=== PATIENT | male | born 1965 | race Caucasian/White ===

== ENCOUNTER 2019-05-09 12:02 | Emergency (ER) | payer SELFPAY ==
[~2019-05-09] VITALS: Ht 167.6 cm; Wt 83.5 kg
[2019-05-09 12:13] VITALS: BP 126/85
--- NOTE | 2019-05-09 12:33 | NUR ---
ED Nurse Note: Pt. AAOx4. ambulatory. c/o left lower abd/groin pain x 1 month. dx with hernia that needs repair. pain is worsened. denies n/v/d at this time. no ss of acute distress noted at this time
--- NOTE | 2019-05-09 12:46 | Emergency Room Report ---
History of Present Illness General Chief Complaint: Abdominal Pain Source: Patient Present Illness HPI 53-year-old male presents to the emergency department complaining of intermittent 9 out of 10 severity pain to the left lower quadrant/inguinal area secondary to hernia x1 month. Patient reports that he was diagnosed with a hernia while he was in senior living and he was recommended to have surgery however upon release of senior living he did not have any follow-up. Patient states that when he coughs or when he eats his symptoms are exacerbated and the hernia swells up much larger. Patient states that he is able to push the hernia in and out he states that laying down on his back makes his symptoms better. Patient denies erythema, warmth, nausea, vomiting, fevers or chills. No other relieving factors at this time. Patient states he was given some special type of underwear however it is not helping. He denies strenuous activities or heavy lifting. Allergies: Coded Allergies: No Known Allergies (Unverified , 05/09/19) Patient History Past Medical History: see triage record Past Surgical History: none Pertinent Family History: none Reviewed Nursing Documentation: PMH: Agreed; PSxH: Agreed Nursing Documentation-PMH Past Medical History: No History, Except For History Of Psychiatric Problem: Yes - substance abuse Review of Systems All Other Systems: negative except mentioned in HPI Physical Exam Vital Signs Date Time Temp Pulse Resp B/P (MAP) Pulse Ox O2 Delivery O2 Flow Rate FiO2 05/09/19 12:13 98.1 95 20 126/85 99 Room Air Sp02 EP Interpretation: reviewed, normal General Appearance: well appearing, no apparent distress, alert, GCS 15, non- toxic Head: normocephalic, atraumatic Eyes: bilateral eye normal inspection, bilateral eye PERRL ENT: hearing grossly normal, normal voice Neck: full range of motion Respiratory: lungs clear, normal breath sounds, speaking full sentences Cardiovascular #1: regular rate, rhythm Gastrointestinal: normal bowel sounds, soft, non-distended, no guarding, hernia - Hernia of the left lower abdomen , easily reducible, exacerbated when pt. sits forward and coughs. Rectal: deferred Genitourinary: normal inspection Musculoskeletal: gait/station normal, normal range of motion, non-tender Neurologic: alert, oriented x3, responsive, motor strength/tone normal, sensory intact, speech normal, grossly normal Psychiatric: judgement/insight normal Skin: normal color, normal inspection, other - no erythema or warmth. Lymphatic: no adenopathy Medical Decision Making PA Attestation Dr. Grant is my supervising physician whom pt. management has been discussed with. Diagnostic Impression: Primary Impression: Reducible inguinal hernia ER Course 53-year-old male presents to the emergency department complaining of intermittent 9 out of 10 severity pain to the left lower quadrant/inguinal area secondary to hernia x1 month. Patient reports that he was diagnosed with a hernia while he was in senior living and he was recommended to have surgery however upon release of senior living he did not have any follow-up. Patient states that when he coughs or when he eats his symptoms are exacerbated and the hernia swells up much larger. Patient states that he is able to push the hernia in and out he states that laying down on his back makes his symptoms better. Patient denies erythema, warmth, nausea, vomiting, fevers or chills. No other relieving factors at this time. Patient states he was given some special type of underwear however it is not helping. He denies strenuous activities or heavy lifting. Ddx considered but are not limited to hernia, strangulated hernia, incarcerated hernia, cellulitis, cancer, lymphadenopathy just to name a few. Vital signs: are WNL, pt. is afebrile. H&PE are most consistent with left inguinal hernia that is easily reducible with manual pressure. No signs of infection or acute abdomen. Pt. NAD, and non- toxic in appearance. ORDERS: none required at this time, the diagnosis is clinical ED INTERVENTIONS: None required at this time. -I do not identify an emergent condition at this time. With current presentation , pt. is stable for close outpatient follow up and conservative treatment. D/ w pt. to return promptly to ED with worsening or new symptoms.- Pt. verbalizes' understanding and agreement with proposed treatment plan. DISCHARGE: At this time pt. is stable for d/c to home. Will provide printed patient care instructions, and any necessary prescriptions. Care plan and follow up instructions have been discussed with the patient prior to discharge. Last Vital Signs Date Time Temp Pulse Resp B/P (MAP) Pulse Ox O2 Delivery O2 Flow Rate FiO2 05/09/19 12:13 95 20 Room Air 05/09/19 12:13 98.1 126/85 (99) 99 Disposition: HOME, SELF-CARE Condition: Stable Scripts [Hernia Truss Belt] No Conflict Check [facility] for HERNIA, #1 Prov: Patricia Parker 05/09/19 Acetaminophen* (TYLENOL EXTRA STRENGTH*) 500 Mg Tablet 500 MG ORAL Q6H, #30 TAB 0 Refills Prov: Patricia Parker 05/09/19 Docusate Sodium* (COLACE*) 100 Mg Capsule 100 MG ORAL THREE TIMES A DAY, #30 CAP Prov: Patricia Parker 05/09/19 Referrals: David Campos Mehrdad MD [facility] Patient Instructions: Hernia, Adult, [id number] Additional Instructions: Take medications as directed. Follow up with a Primary Care Provider for SURGERY REFERRAL/ HERNIA REPAIR SURGEON in 3-5 days, even if your symptoms have resolved. --Please review list of primary care clinics, if you do not already have a primary care provider Return sooner to ED if new symptoms occur, or current symptoms become worse. - Please note that this Emergency Department Report was dictated using [employer] turner and finisher technology software, occasionally this can lead to erroneous entry secondary to interpretation by the dictation equipment. Patricia Parker May 09, 2019 12:46
[2019-05-09] MEDS ORDERED: COLACE100 MG ORAL (12:50)
[2019-05-09] MEDS ORDERED: TYLENOL EXTRA500 MG ORAL (12:50)
[2019-05-09] MEDS ORDERED: [UNRECOGNIZED DRUG - SUPPLY] MC (12:50)
[2019-05-09 13:05] VITALS: BP 122/82
--- NOTE | 2019-05-09 13:05 | NUR ---
ED Nurse Note: PT SITTING PEACEFULLY IN BED IN NAD. AOX4. PRESCRIPTIONS AND DISCHARGE PAPERWORK EXPLAINED TO PT. PT VERBALIZES UNDERSTANDING AND ALL QUESTIONS ANSWERED. PRESCRIPTIONS AND DISCHARGE PAPERWORK GIVEN TO PT AND ID JOSE MARIA REMOVED. PT WALKED OUT OF ER WITH STEADY GAIT AND ALL BELONGINGS.
== END 2019-05-09 13:06 | disposition home or self-care (01) ==
LOC: EMR 12:45
DX: K40.90 Unilateral inguinal hernia, without obstruction or gangrene, not specified as recurrent (principal)
CPT/HCPCS: 99282

== ENCOUNTER 2019-06-16 09:52 | Emergency (ER) | payer SELFPAY ==
[~2019-06-16] VITALS: Ht 170.2 cm; Wt 90.7 kg
[~2019-06-16 09:52] MED LIST: COLACE100 MG ORAL; TYLENOL EXTRA500 MG ORAL; [UNRECOGNIZED DRUG - SUPPLY] MC
--- NOTE | 2019-06-16 09:55 | NUR ---
ED Nurse Note: [facility]. patient is alert and oriented x4, denies any nausea, vomiting, diarrhea. states that the pain started on 06/15/19 at around 10 pm last night and it has progressively got worse. pain is exacerbated when breathing, when making deep breathe patient complains of sharp pain however at rest complains of pressure like pain. patient placed on a monitor car operator. will wait for further orders
[2019-06-16 10:05] VITALS: BP 133/86
--- NOTE | 2019-06-16 10:05 | NUR ---
ED Nurse Note: Patient takes cholesterol medication, but does not know name of it.
[2019-06-16] MEDS ORDERED: Mylanta II UD 30ml ORAL ONE (10:15)
[2019-06-16] MEDS ORDERED: Metoclopramide 10mg/2ml Inj IVP ONE (10:15)
[2019-06-16] MEDS ORDERED: DiphenhydrAMINE 50mg/ml Inj IVP ONE (10:15)
--- NOTE | 2019-06-16 10:21 | Emergency Room Report ---
History of Present Illness General Chief Complaint: Abdominal Pain Source: Patient Present Illness HPI Patient started having left upper quadrant pain yesterday evening. What positional and pleuritic. They gave him two Tums and it did not help. No nausea vomiting diarrhea. The patient has a hernia on the left-hand side but this pain is in the upper abdomen. He feels its like somebody is pinching him. Also he feels acid back up into his esophagus. Denies any fevers or chills. It is rated 7/10, radiates from the stomach area somewhat into the chest. The pain is worsened when he changes position or twists his torso. He had difficulty sleeping last night. 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 He is in a sober living house. No fevers, chills, sore throat, chest pain, palpitations, dysuria, shortness of breath, joint pain, rashes, depression, anxiety, visual changes, headache. Allergies: Coded Allergies: No Known Allergies (Unverified , 05/09/19) Patient History Past Medical History: see triage record Social History: Reports: smoking; Denies: drug use - prior meth Social History Narrative 70 days sober from [facility] Reviewed Nursing Documentation: PMH: Agreed; PSxH: Agreed Nursing Documentation-PMH Past Medical History: No History, Except For Review of Systems All Other Systems: negative except mentioned in HPI Physical Exam Vital Signs Date Time Temp Pulse Resp B/P (MAP) Pulse Ox O2 Delivery O2 Flow Rate FiO2 06/16/19 09:58 98.2 92 16 133/86 (102) 96 Room Air Sp02 EP Interpretation: reviewed, normal General Appearance: well appearing, no apparent distress, GCS 15 Head: normocephalic Eyes: bilateral eye normal inspection, bilateral eye PERRL, bilateral eye EOMI ENT: moist mucus membranes Neck: supple Respiratory: chest non-tender, lungs clear, normal breath sounds Cardiovascular #1: regular rate, rhythm Cardiovascular #2: 2+ radial (R) Gastrointestinal: normal inspection, normal bowel sounds, no mass, non- distended, no guarding, no rebound, tenderness - Left upper quadrant Genitourinary: no CVA tenderness Musculoskeletal: back normal, gait/station normal, normal range of motion Neurologic: alert, oriented x3, grossly normal Psychiatric: mood/affect normal Skin: no rash, warm/dry Medical Decision Making Diagnostic Impression: Primary Impression: Left upper quadrant pain ER Course Patient presents with left upper quadrant pain that somewhat pleuritic. Differential includes acute myocardial infarction, reflux disease, gastritis, pulmonary embolus, bronchitis, pneumothorax amongst others. Based on exam and exam PE and pneumothorax are less likely. The patient will be evaluated with EKG, chest x-ray and labs. Patient is placed on a cardiac catheterization technologist. Patient is given a dose of metoclopramide, Benadryl, Pepcid and Mylanta. EKG nail injury. Chest x-ray clear. Abdominal film with nonspecific bowel gas pattern. CBC CMP and troponin essentially normal with minimally elevated blood glucose. The patient is sleeping after treatment. Discussed results with patient. He says he still has some pain but it is decreased. Discussed the need for outpatient follow-up. Patient stable for outpatient observation and treatment. Labs Test 06/16/19 10:00 White Blood Count 8.1 K/UL (4.8-10.8) Red Blood Count 5.62 M/UL (4.70-6.10) Hemoglobin 16.2 G/DL (14.2-18.0) Hematocrit 47.9 % (42.0-52.0) Mean Corpuscular Volume 85 FL (80-99) Mean Corpuscular Hemoglobin 28.8 PG (27.0-31.0) Mean Corpuscular Hemoglobin Concent 33.8 G/DL (32.0-36.0) Red Cell Distribution Width 13.5 % (11.6-14.8) Platelet Count 300 K/UL (150-450) Mean Platelet Volume 4.5 FL (6.5-10.1) Neutrophils (%) (Auto) 38.9 % (45.0-75.0) Lymphocytes (%) (Auto) 46.2 % (20.0-45.0) Monocytes (%) (Auto) 9.8 % (1.0-10.0) Eosinophils (%) (Auto) 2.5 % (0.0-3.0) Basophils (%) (Auto) 2.5 % (0.0-2.0) Prothrombin Time 10.3 SEC (9.30-11.50) Prothromb Time International Ratio 1.0 (0.9-1.1) Activated Partial Thromboplast Time 27 SEC (23-33) Urine Color Pale yellow Urine Appearance Clear Urine pH 6 (4.5-8.0) Urine Specific [place] 1.020 (1.005-1.035) Urine Protein Negative (NEGATIVE) Urine Glucose (UA) 1+ (NEGATIVE) Urine Ketones Negative (NEGATIVE) Urine Blood Negative (NEGATIVE) Urine Nitrite Negative (NEGATIVE) Urine Bilirubin Negative (NEGATIVE) Urine Urobilinogen Normal MG/DL (0.0-1.0) Urine Leukocyte Esterase Negative (NEGATIVE) Sodium Level 141 MMOL/L (136-145) Potassium Level 4.4 MMOL/L (3.5-5.1) Chloride Level 105 MMOL/L (98-107) Carbon Dioxide Level 28 MMOL/L (21-32) Anion Gap 8 mmol/L (5-15) Blood Urea Nitrogen 15 mg/dL (7-18) Creatinine 0.7 MG/DL (0.55-1.30) Estimat Glomerular Filtration Rate > 60 mL/min (>60) Glucose Level 125 MG/DL (74-106) Calcium Level 9.0 MG/DL (8.5-10.1) Total Bilirubin 0.4 MG/DL (0.2-1.0) Aspartate Amino Transf (AST/SGOT) 24 U/L (15-37) Alanine Aminotransferase (ALT/SGPT) 38 U/L (12-78) Alkaline Phosphatase 63 U/L (46-116) Total Creatine Kinase 92 U/L (26-308) Troponin I 0.000 ng/mL (0.000-0.056) Total Protein 7.7 G/DL (6.4-8.2) Albumin 3.6 G/DL (3.4-5.0) Globulin 4.1 g/dL Albumin/Globulin Ratio 0.9 (1.0-2.7) Lipase 105 U/L (73-393) EKG Diagnostic Results Rate: normal Rhythm: NSR ST Segments: no acute changes Rhythm Strip Diag. Results EP Interpretation: yes Rhythm: NSR, no PVC's, no ectopy Chest X-Ray Diagnostic Results Chest X-Ray Diagnostic Results : Chest X-Ray Ordered: Yes # of Views/Limited/Complete: 1 View Indication: Other EP Interpretation: Yes Interpretation: no consolidation, no effusion, no pneumothorax Impression: No acute disease Electronically Signed by: Electronically signed by Chad Trent MD Other X-Ray Diagnostic Results Other X-Ray Diagnostic Results : X-Ray ordered: Abdomen # of Views/Limited Vs Complete: 3 View Indication: Pain EP Interpretation: Yes Interpretation: nonspecific bowel gas, no sbo, other - No masses Impression: Other Electronically Signed by: Electronically signed by Chad Trent MD Last Vital Signs Date Time Temp Pulse Resp B/P (MAP) Pulse Ox O2 Delivery O2 Flow Rate FiO2 06/16/19 12:49 98.1 76 24 134/78 99 Room Air Status: improved Disposition: HOME, SELF-CARE Condition: Improved Scripts Mag Hydrox/Al Hydrox/Simeth (MAALOX MAXIMUM STRENGTH SUSP) 355 Ml Oral.susp 30 ML PO DAILY, #240 ML Prov: Chad Trent MD 06/16/19 Acetaminophen (Tylenol) 325 Mg Tablet 650 MG ORAL Q6H PRN for Prn Pain/Headache/Temp > 101, #20 TAB 0 Refills Prov: Chad Trent MD 06/16/19 Famotidine (PEPCID AC) 20 Mg Tablet 20 MG PO DAILY, #30 TAB Prov: Chad Trent MD 06/16/19 Chad Trent MD Jun 16, 2019 10:21
[2019-06-16 10:26] LABS: BASOPHILS % (AUTO) 2.5 % (0.0-2.0); EOSINOPHILS % (AUTO) 2.5 % (0.0-3.0); HEMATOCRIT 47.9 % (42.0-52.0); HEMOGLOBIN 16.2 G/DL (14.2-18.0); LYMPHOCYTES % (AUTO) 46.2 % (20.0-45.0); MEAN CORPUSCULAR VOLUME 85 FL (80-99); MONOCYTES % (AUTO) 9.8 % (1.0-10.0); NEUTROPHILS % (AUTO) 38.9 % (45.0-75.0); PLATELET COUNT 300 K/UL (150-450); RED BLOOD COUNT 5.62 M/UL (4.70-6.10); RED CELL DISTRIBUTION WIDTH 13.5 % (11.6-14.8); WHITE BLOOD COUNT 8.1 K/UL (4.8-10.8)
[2019-06-16 10:29] LABS: ANION GAP 8 mmol/L (5-15); BLOOD UREA NITROGEN 15 mg/dL (7-18); CARBON DIOXIDE 28 MMOL/L (21-32); CHLORIDE 105 MMOL/L (98-107); CREATININE 0.7 MG/DL (0.55-1.30); POTASSIUM 4.4 MMOL/L (3.5-5.1); SODIUM 141 MMOL/L (136-145)
[2019-06-16 10:34] LABS: ALANINE AMINOTRANSFERASE 38 U/L (12-78); ALBUMIN 3.6 G/DL (3.4-5.0); ALBUMIN/GLOBULIN RATIO 0.9 (1.0-2.7); ALKALINE PHOSPHATASE 63 U/L (46-116); ASPARTATE AMINO TRANSFERASE 24 U/L (15-37); BILIRUBIN,TOTAL 0.4 MG/DL (0.2-1.0); CREATINE KINASE 92 U/L (26-308)
[2019-06-16 10:48] LABS: APPEARANCE,URINE CLEAR; BILIRUBIN, URINE NEGATIVE (NEGATIVE); COLOR,URINE PALE YELLOW; GLUCOSE, URINE (UA) 1+ (NEGATIVE); KETONES,URINE NEGATIVE (NEGATIVE); LEUKOCYTE ESTERASE ,URINE NEGATIVE (NEGATIVE); NITRITE,URINE NEGATIVE (NEGATIVE); PH,URINE 6 (4.5-8.0); PROTEIN,URINE NEGATIVE (NEGATIVE); UROBILINOGEN,URINE NORMAL MG/DL (0.0-1.0)
--- NOTE | 2019-06-16 11:00 | Diagnostic Imaging Report ---
Indication: Chest pain Technique: XRAY Chest 1v Comparison: None Findings: Heart size and mediastinal contours are within normal limits for AP technique. There is no focal airspace consolidation, pneumothorax or pleural effusion. Osseous structures demonstrate no acute abnormality. Impression: No radiographic evidence of acute cardiopulmonary disease.
--- NOTE | 2019-06-16 11:32 | Diagnostic Imaging Report ---
Indication: Abdominal pain Technique: XRAY Abdomen 1v Comparison: None FINDINGS/IMPRESSION: Moderate stool noted in the right colon suggesting constipation. No abnormal gaseous distention of small bowel loops is noted to suggest small bowel obstruction. No evidence of free intraperitoneal air. There are degenerative changes in the spine. No acute osseous normality. No radiopaque foreign body.
[2019-06-16] MEDS ORDERED: PEPCID AC20 M2 PO (12:19)
[2019-06-16] MEDS ORDERED: TYLENOL325 MG ORAL (12:19)
[2019-06-16] MEDS ORDERED: MAALOX MAXIMUM355 M1 PO (12:19)
[2019-06-16 12:20] VITALS: BP 134/78
[2019-06-16 12:49] VITALS: BP 134/78
--- NOTE | 2019-06-19 14:09 | Cardiology Report ---
APPROVED REPORT EKG Measurement Heart [id number] Normal sinus rhythm Normal ECG
== END 2019-06-16 12:49 | disposition home or self-care (01) ==
LOC: EMR 10:37
DX: R10.12 Left upper quadrant pain (principal); F17.200 Nicotine dependence, unspecified, uncomplicated; E78.00 Pure hypercholesterolemia, unspecified
CPT/HCPCS: 36415; 71045; 74018; 80053; 81003; 82550; 83690; 84484; 85025; 85610; 85730; 93005; 96361; 96374; 96375; 99284; J1200; J2765; S0028

== ENCOUNTER 2019-06-18 14:59 | Emergency (ER) | payer SELFPAY ==
[~2019-06-18] VITALS: Ht 170.2 cm; Wt 90.7 kg
[~2019-06-18 14:59] MED LIST changes: +MAALOX MAXIMUM355 M1 PO; +PEPCID AC20 M2 PO; +TYLENOL325 MG ORAL
[2019-06-18] MEDS ORDERED: Ketorolac 30mg Inj IV ONE (15:30)
[2019-06-18] MEDS ORDERED: Metoclopramide 10mg/2ml Inj IVP ONE (15:30)
[2019-06-18] MEDS ORDERED: DiphenhydrAMINE 50mg/ml Inj IVP ONE (15:30)
--- NOTE | 2019-06-18 15:34 | Emergency Room Report ---
History of Present Illness General Chief Complaint: Nausea, Vomiting, and Diarrhea Source: Patient Present Illness HPI Patient presents with complaints of continued diffuse abdominal discomfort Patient reports that he was here 2 days ago told that he had likely a bacterial infection however patient has not been able to get his medications reports that it's a [employer] holiday And that he is unable to get his medications patient is at a rehab facility Patient had several episodes of vomiting still complains of diarrhea denies any blood in the stool denies any Fevers or chills patient points diffusely And epigastric bilateral upper and lower abdominal area and cramping in sensation denies any rash Allergies: Coded Allergies: No Known Allergies (Unverified , 05/09/19) Patient History Past Medical History: see triage record Reviewed Nursing Documentation: PMH: Agreed; PSxH: Agreed Nursing Documentation-PM Past Medical History: No History, Except For Review of Systems All Other Systems: negative except mentioned in HPI Physical Exam Vital Signs Date Time Temp Pulse Resp B/P (MAP) Pulse Ox O2 Delivery O2 Flow Rate FiO2 06/18/19 15:11 98.1 98 20 121/90 (100) 95 Room Air Sp02 EP Interpretation: reviewed, normal General Appearance: well appearing, no apparent distress Head: normocephalic, atraumatic Eyes: bilateral eye PERRL, bilateral eye EOMI ENT: hearing grossly normal, normal pharynx, TMs + canals normal, uvula midline Neck: full range of motion, supple, no meningismus, no bony tend Respiratory: lungs clear, normal breath sounds, no rhonchi, no respiratory distress, no retraction, no accessory muscle use Cardiovascular #1: normal peripheral pulses, regular rate, rhythm, no edema, no gallop, no JVD, no murmur Gastrointestinal: normal bowel sounds, non tender - On palpation however subjectively points diffusely throughout the 4 quadrants, soft, no mass, no organomegaly, non-distended, no guarding, no hernia, no pulsatile mass, no rebound Genitourinary: no CVA tenderness Musculoskeletal: normal inspection Neurologic: oriented x3, responsive, shirt folder III-XII nml as tested, motor strength/ tone normal, sensory intact Psychiatric: mood/affect normal Skin: no rash Lymphatic: normal inspection, no adenopathy Medical Decision Making Diagnostic Impression: Primary Impression: Nausea, vomiting, and diarrhea Additional Impression: Abdominal pain ER Course With the history exam and presentation, multiple differentials considered, including but not limited to appendicitis, gastritis, cholecystitis, diverticulitis Given the patient's continued discomfort and the return visit I did want to repeat the blood work At this time the imaging that was done recently appears to be And abdominal x-ray therefore I felt CAT scan imaging would be the appropriate next step given the continued discomfort Patient also written for several medications for his pain While the patient was getting worked up Myself along with the nursing staff saw the patient walking towards the exit room he was escorted by his Chief Engineer Research from the facility that he was from Patient provided no other reason for leaving States that he feels better patient is awake and alert and has full decision seeking capacity, and eloped from the emergency room prior to evaluation and further work-up Last Vital Signs Date Time Temp Pulse Resp B/P (MAP) Pulse Ox O2 Delivery O2 Flow Rate FiO2 06/18/19 15:11 98.1 98 20 121/90 (100) 95 Room Air Status: other Disposition: ELOPED Condition: Unknown Aziza Akbar DO Jun 18, 2019 15:34
[2019-06-18] MEDS ORDERED: Omnipaque-300 100ml vial INJ PRN (15:45)
--- NOTE | 2019-06-18 15:58 | NUR ---
Patient arrived stating he is not able to fill Rx from prior ED admission 2 days prior. After advising the pt that the MD ordered testing, labwork, and medications, pt eloped before interventions performed. aware.
[2019-06-18 16:02] VITALS: BP 121/90
== END 2019-06-18 16:02 | disposition left against medical advice (07) ==
LOC: EMR 15:30
DX: R10.9 Unspecified abdominal pain (principal); R11.2 Nausea with vomiting, unspecified; R19.7 Diarrhea, unspecified
CPT/HCPCS: 99282